=== PATIENT | male | born 1965 | race Caucasian/White ===

== ENCOUNTER 2020-09-27 08:38 | Outpatient (REF) | payer BC, SELFPAY | END 2020-09-27 08:39 | disposition home or self-care (01) | LOC: HO.WFDLDS 08:38 | PROVIDERS: PCP Internal Medicine; Visit Provider Internal Medicine | DX: Z20.822 Contact with and (suspected) exposure to COVID-19 (principal) | CPT/HCPCS: 36415; C9803; U0003; U0005 ==

== ENCOUNTER 2022-10-08 11:29 | Outpatient (REF) | payer BC, SELFPAY ==
--- NOTE | ~2022-10-08 | XR_ITS ---
EXAMINATION: XR KNEE, LEFT CLINICAL INFORMATION: Left knee sprain. COMPARISON: None available. TECHNIQUE: Four views of the left knee. FINDINGS: Moderate medial compartment joint space narrowing. Tricompartmental marginal osteophytes. No osseous erosion. No fracture or dislocation. No concerning lytic or blastic osseous lesion. Trace joint effusion. Unfused osteophyte versus loose body along the posterior margin of the tibial plateau measuring up to 1.1 cm. XR/XR knee LT 4V IMPRESSION: 1. Tricompartmental osteoarthritis, most prominent within the medial compartment. Trace joint effusion. 2. No acute fracture or dislocation.
== END 2022-10-08 11:30 | disposition home or self-care (01) ==
LOC: HO.HMGCX 11:29
PROVIDERS: Visit Provider Internal Medicine
DX: S83.92XA Sprain of unspecified site of left knee, initial encounter (principal); X58.XXXA Exposure to other specified factors, initial encounter; Y93.9 Activity, unspecified; Y92.9 Unspecified place or not applicable; Y99.9 Unspecified external cause status
CPT/HCPCS: 73564

== ENCOUNTER 2023-06-05 10:00 | Outpatient (AMB) | payer BC, SELFPAY ==
[2023-06-05 10:05] VITALS: BP 152/92; PULSE 83; RESP 13; O2SAT 98; BMI 47.5
--- NOTE | 2023-06-05 10:05 | MHC.PC.OV ---
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 Patient reports he requested his records from [facility]. 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 Pelaez @ [place] Last office visit/CPE: Acute issue(s): Establishing Care PMHx: Hypertriglyceridemia, SurgHx: R Hip replacement, Bariatrics 01/2020 [place] bypass, Dr. Trevizo, Tonsils, Colonoscopy normal, right before covid FHx: Dad: Rectal CA. 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 Nonsmoker. Chews tobacco. [facility] Surgical History (Updated 06/05/23 @ 10:21 by Dmitry An) History of bariatric surgery History of hip replacement Household Members: Spouse and Children Housing: House Alcohol intake: current Alcohol intake frequency: holidays/special occasions only Patient Tobacco Use Status: Current everyday Tobacco user Tobacco use type: Smokeless Tobacco (chew) e-Cigarette/Vaping Use: Never Used service: No Current occupational status: employed Current occupation: [employer] Current occupational exposures/hazards: No Sexual orientation: Unable to collect Gender identity: Unable to collect Cognitive needs: No Hearing needs: No Vision needs: No Questionnaire PHQ-9 Over the last 2 weeks, how often have you been bothered by any of the following problems? 1. Little interest or pleasure in doing things: not at all 2. Feeling down, depressed, or hopeless: not at all 3. Trouble falling or staying asleep, or sleeping too much: more than half the days 4. Feeling tired or having little energy: not at all 5. Poor appetite or overeating: not at all 6. Feeling bad about yourself - or that you are a failure or have let yourself or your family down: not at all 7. Trouble concentrating on things, such as reading the newspaper or watching television: not at all 8. Moving or speaking so slowly that other people could have noticed. Or the opposite - being so fidgety or restless that you have been moving around a lot more than usual: not at all 9. Thoughts that you would be better off or of hurting yourself in some way: not at all Total score: 2 Source: Developed by Drs. Jose Cruz Álvarez, Andree Martin, Alex Card and colleagues, with an educational laly from [employer]. Thrive Questionnaire Date Thrive assessed: 06/05/23 I am a: Patient What is your living situation today?: I have a steady place to live Within the past 12 months, did the food you bought not last and you didn't have the money to get more?: Never true Within the past 12 months, did you worry whether your food would run out before you got money to buy more?: Never true Do you have trouble paying for medicines?: No Do you have trouble getting transportation to medical appointments?: No Do you have trouble paying your heating and electricity bill?: No Do you have trouble taking care of your child, family member or friend?: No Do you have trouble with day-to-day activities such as bathing, preparing meals, shopping, managing finances, etc.?: No Are you currently unemployed and looking for a job?: No Are you interested in more education?: No JEFFRY-7 AMB Questionnaire JEFFRY-7 Date JEFFRY - 7 assessed: 06/05/23 Feeling nervous, anxious, or on edge: 0 = Not at all Not being able to stop or control worryin = Not at all Worrying too much about different things: 0 = Not at all Trouble relaxin = Not at all Being so restless that it is hard to sit still: 0 = Not at all Becoming easily annoyed or irritable: 0 = Not at all Feeling afraid as if something awful might happen: 0 = Not at all Total JEFFRY-7 score (0-4 normal; 5-9 mild; 10-14 moderate; 15-21 severe): 0 Source: Developed by Drs. Jose Cruz Álvarez, Andree Martin, Alex Card and colleagues, with an educational laly from [employer]. Review of Systems Const Denies chills, Denies fatigue, Denies fever(s), Denies headache(s) and Denies weakness Eyes Denies change in vision ENT Denies dizziness and Denies headache(s) Card Denies chest pain, Denies lightheadedness, Denies dyspnea and Denies other (Palpitations) Resp Denies cough, Denies dyspnea, Denies wheezing and Denies other ( shortness of breath) GI Denies abdominal pain, Denies melena, Denies hematochezia, Denies change in bowel habits, Denies dyspepsia and Denies nausea Denies hematuria and Denies dysuria Musc Denies numbness and Denies tingling Skin/Breast Denies rash, Denies unusual bruising and Denies wounds Neuro Denies dizziness, Denies headache(s), Denies numbness, Denies Sensory deficit (Neuro), Denies tingling, Denies paresthesias and Denies weakness Psych Denies anxiety and Denies depression Endo Denies fatigue Mike/Lymph Denies easy bleeding and Denies easy bruising Aller/Immun Denies wheezing Physical exam (Primary Care) Vital Signs: Last Vital Signs Pulse 83 06/05/23 10:05 Resp 13 06/05/23 10:05 BP 152/92 H 06/05/23 10:05 Pulse Ox 98 06/05/23 10:05 Oxygen Delivery Method Room Air 06/05/23 10:05 BMI result Body Mass Index 47.5 Tobacco/Smoking Status: Tobacco use Status Tobacco use date assessed 06/05/23 06/05/23 10:12 Patient Tobacco Use Status Current everyday Tobacco 06/05/23 10:14 Tobacco use type Smokeless Tobacco (chew) 06/05/23 10:12 e-Cigarette/Vaping Use Never Used 06/05/23 10:12 PHQ-9: PHQ-9 Score PHQ-9: Total score 2 06/05/23 10:20 Thrive Assessment: Date of Thrive Assessment Date Thrive assessed 06/05/23 06/05/23 10:22 Const General: no acute distress and well developed Nutritional Appearance: obese morbidly obese Orientation/consciousness: patient oriented x3 HENKS Head: Yes normocephalic and Yes atraumatic Ears: hearing grossly normal bilaterally and TM's normal bilaterally General nose exam: Normal external nose present and Normal nares present Mouth: Normal oral and palatal mucosa present and moist mucous membranes Teeth and gingiva: dentition normal Throat: Yes posterior oropharynx normal Eyes General: appearance normal, both eyes and all related structures Pupils: Equal, round and reactive pupils present EOM: EOMs intact bilaterally Neck Neck: Yes normal visual inspection, Yes no lymphadenopathy and Yes trachea midline Thyroid: Thyroid normal Carotids: no bruits Lymphatic: no lymphadenopathy noted Chest Chest palpation & inspection: normal inspection of the chest Resp Effort & Inspection: normal respiratory effort Auscultation: clear to auscultation bilaterally Cardio Rate: regular rate Rhythm: regular rhythm Heart sounds: S1 normal heart sound present, S2 normal heart sound present, no gallops, no murmurs and no rubs Bruits: no abdominal aortic bruits and no carotid bruits GI Palpation (GI): No Abdominal aortic bruit present, Soft to palpation, nontender, No hepatosplenomegaly present and No Rebound tenderness present Auscultation: normal bowel sounds General: Yes no CVA tenderness Back/Spine/Pelvis Back: no CVA tenderness Cervical Spine: cervical ROM normal and No Cervical spine tenderness Thoracic/Lumbar Spine: thoraco-lumbar ROM normal, No pain with thoraco-lumbar ROM, No thoracic spinal tenderness and No lumbar spinal tenderness Skin Lesions: no lesions Rashes: no rashes Trauma: no lacerations or abrasions Wounds: no wounds Nails: normal Neuro General: patient oriented x3 and gait normal Cranial nerves: Yes Equal, round and reactive pupils present Cognition (Neuro): normal cognition Gait exam (Neuro): Normal gait present Motor exam (neuro): 5/5 motor strength present throughout Sensory Exam: No Sensory deficit (Neuro) Deep tendon reflexes (DTR's): Right patellar reflex intensity grade: 2+ and Left patellar reflex intensity grade: 2+ Extrem General: Yes normal to inspection and No edema Psych Appearance: grossly normal Affect: normal affect Attitude: cooperative Thought process: Normal thought process present Assessment and Plan Assessment & Plan (1) Adult general medical exam: Code(s): Z00.00 - Encounter for general adult medical examination without abnormal findings Plan: 57-year-old?male?presents?for?complete?physical?exam Encouraged?healthy?diet?with?active?lifestyle?and?plenty?of?exercise (2) Morbid obesity: Code(s): E66.01 - Morbid (severe) obesity due to excess calories Plan: S/p?gastric?sleeve?procedure Still?followed?by?weight?management/bariatrics They?are?considering?adding?Mounjaro Follow-up?with?weight?management?as?recommended (3) Hypertriglyceridemia: Code(s): E78.1 - Pure hyperglyceridemia Plan: Check?lipid (4) Screening for colon cancer: Code(s): Z12.11 - Encounter for screening for malignant neoplasm of colon Plan: Last?colonoscopy?around?2019?and?was?told?to?follow-up?in?5?years. Up-to-date Will?request?report (5) Difficulty sleeping: Code(s): G47.9 - Sleep disorder, unspecified Plan: Difficulty?sleeping?and?patient?does?not?get?home?until?late.??Likely?missing?window?for?sleep. Also?notes?that?he?snores?and?patient?is?morbidly?obese.??Likely?sleep?apnea?as?well (6) Sleep apnea: Code(s): G47.30 - Sleep apnea, unspecified Orders: Orders Complete Blood Count Auto Diff Today Z00.00 - Encounter for general adult medical examination without abnormal findings Lipid Panel Today Z00.00 - Encounter for general adult medical examination without abnormal findings Microalbumin, Random (w Creat) Today I10 - Essential (primary) hypertension Prostate Specific Antigen Scr Today Z12.5 - Encounter for screening for malignant neoplasm of prostate TSH reflex Free T4 Today Z00.00 - Encounter for general adult medical examination without abnormal findings UA and rflx microscopic Today Z00.00 - Encounter for general adult medical examination without abnormal findings Vitamin B12 and Folate Today E53.8 - Deficiency of other specified B group vitamins Comprehensive [place]. Panel Fast Today Z00.00 - Encounter for general adult medical examination without abnormal findings Referrals Sleep Medicine Referral G47.30 - Sleep apnea, unspecified Coding Level of Care Code New Pt Level 3 (65223) New Pt Prev Care 40-64y(77815) Diagnoses Adult general medical exam Z00.00 Morbid obesity E66.01 Hypertriglyceridemia E78.1 Screening for colon cancer Z12.11 Difficulty sleeping G47.9 Sleep apnea G47.30
== END 2023-06-05 10:48 | disposition home or self-care (01) ==
PROVIDERS: PCP Family Medicine; Visit Provider Family Medicine
DX: Z00.00 Encounter for general adult medical examination without abnormal findings (principal); E66.01 Morbid (severe) obesity due to excess calories; Z68.42 Body mass index [BMI] 45.0-49.9, adult; E78.1 Pure hyperglyceridemia; Z12.11 Encounter for screening for malignant neoplasm of colon; G47.9 Sleep disorder, unspecified; G47.30 Sleep apnea, unspecified
CPT/HCPCS: 99386

== ENCOUNTER 2023-06-21 08:17 | Outpatient (AMB) | payer BC, SELFPAY ==
[2023-06-21 08:38] VITALS: BP 124/72; PULSE 69; RESP 14; O2SAT 95; BMI 47.5
--- NOTE | 2023-06-21 08:38 | MHC.PC.OV ---
Vital Signs 06/21/23 08:38 Height 6 ft 4.75 in Weight 398 lb BMI 47.5 BP 124/72 Blood Pressure Location Lt brachial Position Sitting Respiration 14 Pulse 69 Pulse Source Pulse Oximeter Pulse Oximetry (%) 95 Oxygen Delivery Method Room Air Intake Visit Reasons: Pain upon urination, see comments Intake Note: Patient is here to follow up with urinary concerns. Patient reports he used the bathroom and it felt like an object shot out and noticed a small amount of blood. Then the pain in his back went away and when he used the bathroom it burned a little but not like before passing the object. . Patient would like to mention he had blood in his belly button and would like to discuss gout left big toe. 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 Patient reports he used the bathroom and it felt like an object shot out and noticed a small amount of blood. Then the pain in his back went away and when he used the bathroom it burned a little but not like before passing the object. Pt notes dysuria cleared up yesterday and denies any dysuria. Pt also notes he had found some blood in his belly button. [facility] Medical History (Updated 06/21/23 @ 09:19 by Dmitry An) No pertinent past medical history Surgical History (Updated 06/05/23 @ 10:21 by Dmitry An) History of bariatric surgery History of hip replacement Social History (Updated 06/05/23 @ 10:14 by Rashmi Butler [facility]) Household Members: Spouse and Children Housing: House Alcohol intake: current Alcohol intake frequency: holidays/special occasions only Patient Tobacco Use Status: Current everyday Tobacco user Tobacco use type: Smokeless Tobacco (chew) e-Cigarette/Vaping Use: Never Used service: No Current occupational status: employed Current occupation: [employer] Current occupational exposures/hazards: No Sexual orientation: Unable to collect Gender identity: Unable to collect Cognitive needs: No Hearing needs: No Vision needs: No Questionnaire PHQ-9 Over the last 2 weeks, how often have you been bothered by any of the following problems? 1. Little interest or pleasure in doing things: not at all 2. Feeling down, depressed, or hopeless: not at all 3. Trouble falling or staying asleep, or sleeping too much: not at all 4. Feeling tired or having little energy: several days 5. Poor appetite or overeating: several days 6. Feeling bad about yourself - or that you are a failure or have let yourself or your family down: not at all 7. Trouble concentrating on things, such as reading the newspaper or watching television: not at all 8. Moving or speaking so slowly that other people could have noticed. Or the opposite - being so fidgety or restless that you have been moving around a lot more than usual: not at all 9. Thoughts that you would be better off or of hurting yourself in some way: not at all Total score: 2 Depression Screening Interpretation: Negative Depression Screening Done: Yes 34621 - PHQ-9 Billing: Yes Source: Developed by Drs. Jose Cruz Álvarez, Andree Martin, Alex Card and colleagues, with an educational laly from [employer]. Thrive Questionnaire Date Thrive assessed: 06/05/23 AUDIT C Alcohol Use Questionnaire (AUDIT-C) 1. How often do you have a drink containing alcohol?: Monthly or less 2. How many drinks containing alcohol do you have on a typical day when you are drinking?: 1 or 2 3. How often do you have six or more drinks on one occasion?: Never Total Score: 1 Score Reviewed/Action Taken: No (Neg. No Action taken) JEFFRY-7 AMB Questionnaire JEFFRY-7 Date JEFFRY - 7 assessed: 06/05/23 Source: Developed by Drs. Jose Cruz Álvarez, Alex Gonzalez and colleagues, with an educational laly from [employer]. Physical exam (Primary Care) Vital Signs: Last Vital Signs Pulse 69 06/21/23 08:38 Resp 14 06/21/23 08:38 BP 124/72 06/21/23 08:38 Pulse Ox 95 06/21/23 08:38 Oxygen Delivery Method Room Air 06/21/23 08:38 BMI result Body Mass Index 47.5 Tobacco/Smoking Status: Tobacco use Status Tobacco use date assessed 06/05/23 06/21/23 08:44 Patient Tobacco Use Status Current everyday Tobacco 06/21/23 08:44 Tobacco use type Smokeless Tobacco (chew) 06/21/23 08:44 e-Cigarette/Vaping Use Never Used 06/21/23 08:44 PHQ-9: PHQ-9 Score PHQ-9: Total score 2 06/21/23 09:01 Depression Screening Interpretation: Negative Thrive Assessment: Date of Thrive Assessment Date Thrive assessed 06/05/23 06/21/23 08:44 Assessment and Plan Assessment & Plan (1) Dysuria: Code(s): R30.0 - Dysuria Plan: Temporary?dysuria/burning?after?passing?solid?object?while?urinating. Likely?passed?a?stone Checking?urinalysis No?longer?has?any?pain/burning,?blood?or?discharge. Hydrate?well. If?patient?has?any?further?symptoms?or?episodes,?will?refer?to?Urology (2) Gout: Code(s): M10.9 - Gout, unspecified Plan: Left?great?toe?pain?and?swelling Checking?uric?acid Will?give?him?a?short?course?of?prednisone Advised?ice?and?elevation (3) Fungal infection of skin: Code(s): B36.9 - Superficial mycosis, unspecified Plan: Fungal?infection?in?umbilicus Can?use?topical?antifungal?cream Clean?and?dry?area?regularly Orders: Orders Uric Acid Today M79.676 - Pain in unspecified toe(s) Medications: New clotrimazole 1% 1 appl topical BID 30 grams 0RF 2 weeks prednisone 40 mg (2 x 20 mg) PO DAILY 8 tabs 0RF 4 days Coding Level of Care Code Est Pt Level 4 (24403) Diagnoses Dysuria R30.0 Gout M10.9 Fungal infection of skin B36.9
== END 2023-06-21 09:30 | disposition home or self-care (01) ==
PROVIDERS: PCP Family Medicine; Visit Provider Family Medicine
DX: R30.0 Dysuria (principal); M10.9 Gout, unspecified; B36.9 Superficial mycosis, unspecified
CPT/HCPCS: 99214

== ENCOUNTER 2023-06-21 08:19 | Outpatient (REF) | payer BC, SELFPAY ==
[2023-06-21 12:15] LABS: Appearance Urine Clear; Color Urine Yellow; Glucose Urine UA Negative (Negative); Leukocyte Esterase Urine Small (1+) (Negative); Nitrite Urine Negative (Negative); PH 5.5 (5.0-9.0); Specific Gravity - Urine 1.025 (1.005-1.025); UMIC TRIGGER UA YES; Urine Blood Negative (Negative); Urine Ketones Negative (Negative); Urine Protein Negative (Neg-Trace)
[2023-06-21 12:16] LABS: MANUAL DIFF FLAG NO
[2023-06-21 12:21] LABS: Bacteria Urine None Seen (None Seen); Hyaline Casts Urine 0-2 /LPF (0-2); RBC Urine 0-2 /HPF (0-2); Squamous Epithelial Cell Urine 0-2 /HPF (0-2)
[2023-06-21 12:32] LABS: Basophils Absolute Auto 0.1 X10*3/uL (0.0-0.2); Basophils Percent Auto 0.8 % (0-2); Eosinophils Absolute Auto 0.1 X10*3/uL (0.0-0.4); Eosinophils Percent Auto 1.8 % (0-4); Hematocrit 44.1 % (42.0-52.0); Imm Gran Abs Auto 0.02 X10*3/uL (0.00-0.03); Imm Gran Pct Auto 0.3 % (0.0-0.4); Lymphocytes Absolute Auto 1.6 X10*3/uL (1.2-4.9); Lymphocytes Percent Auto 26.7 % (20-40); Mean Corpuscular Hemoglobin 33.3 pg (27.0-33.0); Mean Corpuscular Volume 97.8 fL (80.0-98.0); Mean Platelet Volume 10.2 fL (9.4-12.4); Monocytes Absolute Auto 0.3 X10*3/uL (0.1-1.2); Monocytes Percent Auto 5.3 % (2-11); Neutrophils Absolute Auto 3.9 x10*3/uL (2.0-8.3); Neutrophils Percent Auto 65.1 % (45-73); Platelet Count 230 X10*3/uL (160-400); Red Blood Count 4.51 X10*6/uL (4.60-5.80); Red Cell Distribution Width 12.9 % (11.0-16.0)
[2023-06-21 12:54] LABS: Creatinine Urine 210.37 mg/dL; Microalbum/Creatinine Ratio Ur 6.1 ug/mg cr (<30)
[2023-06-21 13:27] LABS: Folate 8.8 ng/mL (> or = 4.0); Prostate Specific Antigen Scr 0.54 ng/mL (<0.05-4.0); Vitamin B12 699 pg/mL (200-900)
[2023-06-21 13:30] LABS: Alanine Aminotransferase 20 U/L (0-40); Albumin Level 3.9 g/dL (3.5-5.0); Alkaline Phosphatase 64 U/L (39-117); Anion Gap 12 (12-20); Aspartate Amino Transferase 22 U/L (5-37); Blood Urea Nitrogen 13 mg/dL (9-16); Calcium 8.7 mg/dL (8.4-10.2); Carbon Dioxide 28 mmol/L (22-29); Chloride 109 mmol/L (96-108); Cholesterol 153 mg/dL (<200); Estimated Glomerular Filt Rate > 60; Glucose Fasting 77 mg/dL (60-99); HDL Cholesterol 46 mg/dL (>40); LDL Cholesterol Calculated 88 mg/dL (<100); Potassium 4.2 mmol/L (3.3-5.1); Sodium 145 mmol/L (135-145); Total Protein 7.1 g/dL (6.5-8.0); Triglycerides 98 mg/dL (<150); Uric Acid 6.7 mg/dL (3.4-7.0)
[2023-06-21 13:42] LABS: TSH reflex Free T4 1.17 uIU/mL (0.32-4.0)
== END 2023-06-21 08:20 | disposition home or self-care (01) ==
LOC: HO.WFDLDS 08:19
PROVIDERS: Visit Provider Family Medicine
DX: Z00.00 Encounter for general adult medical examination without abnormal findings (principal); Z12.5 Encounter for screening for malignant neoplasm of prostate; I10 Essential (primary) hypertension; E53.8 Deficiency of other specified B group vitamins
CPT/HCPCS: 36415; 80053; 80061; 81001; 82043; 82570; 82607; 82746; 84153; 84443; 84550; 85025

== ENCOUNTER 2023-07-05 14:18 | Outpatient (AMB) | payer BC, SELFPAY ==
--- NOTE | 2023-07-05 14:14 | MHC.PC.OV ---
Intake Visit Reasons: f/u CPE-labs Intake Note: Patient is following up on his labs. 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 Labs were drawn 06/21/23. Reviewed labs with pt. Triglycerides 98. TC 153. LDL 88. HDL 46. Uric acid 6.7. PFSH Medical History (Updated 06/21/23 @ 09:19 by Dmitry An) No pertinent past medical history Surgical History (Updated 06/05/23 @ 10:21 by Dmitry An) History of bariatric surgery History of hip replacement Social History (Updated 06/05/23 @ 10:14 by Rashmi Butler [facility]) Household Members: Spouse and Children Housing: House Alcohol intake: current Alcohol intake frequency: holidays/special occasions only Patient Tobacco Use Status: Current everyday Tobacco user Tobacco use type: Smokeless Tobacco (chew) e-Cigarette/Vaping Use: Never Used service: No Current occupational status: employed Current occupation: [employer] Current occupational exposures/hazards: No Sexual orientation: Unable to collect Gender identity: Unable to collect Cognitive needs: No Hearing needs: No Vision needs: No Questionnaire Thrive Questionnaire Date Thrive assessed: 06/05/23 JEFFRY-7 AMB Questionnaire JEFFRY-7 Date JEFFRY - 7 assessed: 06/05/23 Source: Developed by Drs. Jose Cruz Álvarez, Andree Martin, Alex Card and colleagues, with an educational laly from [employer]. Physical exam (Primary Care) Tobacco/Smoking Status: Tobacco use Status Tobacco use date assessed 06/05/23 07/05/23 14:16 Patient Tobacco Use Status Current everyday Tobacco 07/05/23 14:16 Tobacco use type Smokeless Tobacco (chew) 07/05/23 14:16 e-Cigarette/Vaping Use Never Used 07/05/23 14:16 Thrive Assessment: Date of Thrive Assessment Date Thrive assessed 06/05/23 07/05/23 14:16 Telehealth Telehealth Location of provider rendering services: practice address Location of patient: address on file Patient Identification confirmed using: Name, : Yes Telehealth method: voice only Patient verbally consented to treatment: Yes Patient verbally consented to billing insurance company: Yes Patient informed of any privacy concerns related to visit: Yes Minutes spent on Phone/Video with Pt.: 5 Assessment and Plan Assessment & Plan (1) Gout: Code(s): M10.9 - Gout, unspecified Plan: Uric?acid?6.7 - discussed?that?my?goal?for?him?is?6.0?or?less?but?he?has?no?symptoms We?can?continue?to?watch?this; he?will?let?me?know?if?he?has?any?flare-ups?and?he?will?avoid?trigger?foods Will?recheck?with?his?next?lab?draw (2) Dysuria: Code(s): R30.0 - Dysuria Plan: This?has?resolved Orders: Orders Complete Blood Count Auto Diff 9 Months Z00.00 - Encounter for general adult medical examination without abnormal findings Prostate Specific Antigen Scr 9 Months Z12.5 - Encounter for screening for malignant neoplasm of prostate TSH reflex Free T4 9 Months Z00.00 - Encounter for general adult medical examination without abnormal findings Comprehensive [place]. Panel Fast 9 Months Z00.00 - Encounter for general adult medical examination without abnormal findings Lipid Panel 9 Months Z00.00 - Encounter for general adult medical examination without abnormal findings Microalbumin, Random (w Creat) 9 Months I10 - Essential (primary) hypertension UA and rflx microscopic 9 Months Z00.00 - Encounter for general adult medical examination without abnormal findings Uric Acid 9 Months M10.9 - Gout, unspecified Coding Level of Care Code Tele Est Pt Level 2 (39777) Diagnoses Gout M10.9 Dysuria R30.0
== END 2023-07-05 16:59 | disposition home or self-care (01) ==
PROVIDERS: PCP Family Medicine; Visit Provider Family Medicine
DX: M10.9 Gout, unspecified (principal); R30.0 Dysuria
CPT/HCPCS: 99441

== ENCOUNTER 2023-08-19 13:22 | Outpatient (AMB) | payer BC, SELFPAY ==
--- NOTE | 2023-08-19 13:30 | MHC.OFFVIS ---
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 Pt reports loud snoring, witnessed apnea spells. He had a hip replacement surgery done and witnessed frequent apnea spells and recommended to do sleep study to r/o sleep apnea. He also had gastric bypass surgery done in 2019. Sleep questionnaire: Have you ever been diagnosed with a sleep disorder? No. Have you ever had a sleep study in the past? No. Have you ever been treated for a sleep disorder? No. Do you take medications for a sleep disorder? No. Do you snore? Yes. Do you wake up gasping at night? No. Do you have episodes of apneas? Yes. If yes, are they witnessed? Yes. Do you have episodes of nocturnal chest pain or dyspnea? No. Do you have difficulty initiating sleep? No. Do you have difficulty maintaining sleep? Yes. Do you wake up tired? Yes. Do you have headaches upon awakening? No. Do you wake up with dry mouth or throat? Yes. Do you have GERD? No. Do you have nocturia? No. Do you have nocturnal leg cramps? Yes. Do you have symptoms of restless legs? No. Do you act out your dreams? No. Sleep hygiene questionnaire: What is your usual sleep routine? Usual bedtime is at 11:30-12:30 am; Usual wake up time is at 5:30 am. Do you take naps? Yes, sometimes. Is your sleep environment cool, dark, and quiet? Yes. Do you exercise? Yes. Do you take caffeine or other stimulants? Yes, coffee in the morning. Do you use electronics in bed? Yes, sometimes. What is your work schedule? 6:30 am-6:30 pm. Hypersomnolence questionnaire: Do you have daytime tiredness or fatigue? Yes. Do you easily fall asleep when inactive? Yes. Have you ever had episodes of sudden weakness? No. Have you ever had episodes of sudden weakness associated with strong emotions? No. [facility] Medical History (Updated 08/19/23 @ 14:17 by Kalani Lin CNP) No pertinent past medical history Surgical History History of bariatric surgery History of hip replacement Social History Household Members: Spouse and Children Housing: House Alcohol intake: current Alcohol intake frequency: holidays/special occasions only Patient Tobacco Use Status: Current everyday Tobacco user Tobacco use type: Smokeless Tobacco (chew) e-Cigarette/Vaping Use: Never Used service: No Current occupational status: employed Current occupation: [employer] Current occupational exposures/hazards: No Sexual orientation: Unable to collect Gender identity: Unable to collect Cognitive needs: No Hearing needs: No Vision needs: No Review of Systems Const All systems reviewed & are unremarkable except as noted in HPI and below Physical Exam Vital Signs: Last Vital Signs Pulse 75 08/19/23 13:36 BP 124/70 08/19/23 13:36 Pulse Ox 96 08/19/23 13:36 Oxygen Delivery Method Room Air 08/19/23 13:36 BMI result Body Mass Index 49.9 Const General: cooperative Nutritional Appearance: obese Orientation/consciousness: patient oriented x3 Neck Neck: Yes full ROM and Yes supple Resp Effort & Inspection: normal respiratory effort and able to speak in complete sentences Neuro General: patient oriented x3, gait normal and moves all extremities Cranial nerves: Yes CN's II-XII intact bilaterally Cognition (Neuro): normal cognition Gait exam (Neuro): Normal gait present Motor exam (neuro): 5/5 motor strength present throughout Psych Appearance: grossly normal Mental Status: mental status grossly normal Speech and movement: Normal speech and movement present Affect: normal affect Attitude: cooperative Assessment & Plan Assessment & Plan (1) Sleep apnea: Code(s): G47.30 - Sleep apnea, unspecified (2) Difficulty sleeping: Code(s): G47.9 - Sleep disorder, unspecified (3) Morbid obesity: Comment: BMI over 49 Code(s): E66.01 - Morbid (severe) obesity due to excess calories Plan Pt is advised to undergo in lab sleep study to assess for sleep apnea. Will f/u with pt after study to discuss results and appropriate treatment options. Sleep hygiene education provided. Wt reduction advised. Pt to call with any worsening concerns or questions. Orders: Orders RT PSG in-lab sleep study 08/19/23 E66.01 - Morbid (severe) obesity due to excess calories, G47.30 - Sleep apnea, unspecified Coding Level of Care Code New Pt Level 3 (48287) Diagnoses Sleep apnea G47.30 Difficulty sleeping G47.9 Morbid obesity E66.01
[2023-08-19 13:36] VITALS: BP 124/70; PULSE 75; O2SAT 96; BMI 49.9
== END 2023-08-19 14:21 | disposition home or self-care (01) ==
PROVIDERS: PCP Family Medicine; Visit Provider Nurse Practitioner Family
DX: G47.30 Sleep apnea, unspecified (principal); G47.9 Sleep disorder, unspecified; E66.01 Morbid (severe) obesity due to excess calories
CPT/HCPCS: 99203

== ENCOUNTER → 2023-08-19 13:22 | Outpatient (BNVA) | payer BC, SELFPAY | PROVIDERS: PCP Family Medicine; Visit Provider Nurse Practitioner Family ==

== ENCOUNTER → 2023-11-26 14:40 | Outpatient (REF) | payer BC, SELFPAY | LOC: HO.SL 14:40 | PROVIDERS: PCP Family Medicine; Visit Provider Nurse Practitioner Family | DX: G47.33 Obstructive sleep apnea (adult) (pediatric) (principal); E66.01 Morbid (severe) obesity due to excess calories | CPT/HCPCS: 95806 ==

== ENCOUNTER → 2023-11-26 14:56 | Outpatient (BNV) | payer BC, SELFPAY | PROVIDERS: PCP Family Medicine; Visit Provider Psychiatry & Neurology Neurology | DX: G47.33 Obstructive sleep apnea (adult) (pediatric) (principal) | CPT/HCPCS: 95806 ==

== ENCOUNTER 2024-05-14 13:32 | Outpatient (AMB) | payer OTHER, SELFPAY ==
--- NOTE | 2024-05-14 13:35 | A.OFFVIS_ITS ---
Vital Signs 05/14/24 13:36 Height 6 ft 5 in Weight 387 lb BMI 45.9 Intake Visit Reasons: 4m f/u for Sleep Apnea Intake Note: patient presents for follow up sleep apnea Allergies No Known Allergies Allergy (Verified 05/14/24 13:40) Medication List - Last Reconciled 05/14/24 by SANDRA Rao No Known Home Meds HPI Comments Details: 58-yr-old male presents for follow-up visit of sleep apnea. Pt was previously seen by our former colleague Kalani SAMUEL. Since the last visit, pt underwent HST, as insurance declined in-lab PSG study. Since the last visit, pt underwent HST which revealed AHI /hr w/ O2 mitch 76% w/ SpO2 < 90% x's 64.6 min, SpO2 < 88% x's 8.9 min, and average SpO2 92%. Pt states he did not sleep well during the sleep study. Normally sleeps on his stomach or left side d/t old right shoulder injury, but during study he slept on his left side predominantly. 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 Pt denies SOB at rest, congestion, chest pain, asthma, COPD. COUNT INCLUDES [facility] Medical History (Updated 05/14/24 @ 14:34 by SANDRA Rao) No pertinent past medical history Surgical History History of bariatric surgery History of hip replacement Social History Household Members: Spouse and Children Housing: House Alcohol intake: current Alcohol intake frequency: holidays/special occasions only Patient Tobacco Use Status: Current everyday Tobacco user Tobacco use type: Smokeless Tobacco (chew) e-Cigarette/Vaping Use: Never Used service: No Current occupational status: employed Current occupation: [employer] Current occupational exposures/hazards: No Sexual orientation: Unable to collect Gender identity: Unable to collect Cognitive needs: No Hearing needs: No Vision needs: No Physical Exam Vital Signs: BMI result Body Mass Index 45.9 Const General: no acute distress Orientation/consciousness: patient oriented x3 Resp Effort & Inspection: normal respiratory effort and able to speak in complete sentences Neuro General: patient oriented x3 Psych Mental Status: mental status grossly normal Speech and movement: Clear speech present Attitude: cooperative Assessment & Plan Assessment & Plan (1) Obstructive sleep apnea: Comment: 11/26/23 HST- AHI 5.8/hr w/ O2 mitch 76%. Poor sleep during study may have resulted in study underestimating full extent of sleep apnea. Code(s): G47.33 - Obstructive sleep apnea (adult) (pediatric) Category: Medical (2) Nocturnal hypoxemia: Code(s): G47.34 - Idiopathic sleep related nonobstructive alveolar hypoventilation Category: Medical Plan Reviewed results of sleep study report, results c/w sleep apnea. Discussed complications a/w untreated YASHIRA, including but not limited to CV, metabolic, and cognitive dysfunction. Thus, pt advised to start PAP tx.. Continue APAP 5-20 cmH2O nightly > 4 hours. Once pt has adjusted to APAP use, nocturnal pulse oximetry reading x's 1 while on room air APAP [id number]. Clean CPAP machine and supplies routinely. Change CPAP supplies routinely. Pt to contact us or respiratory company with any questions or concerns. Pt to follow-up in 4 months or sooner prn. Orders: Orders Overnight Pulse Oximetry Today G47.33 - Obstructive sleep apnea (adult) (pediatric), G47.34 - Idiopathic sleep related nonobstructive alveolar hypoventilation Medications: Discontinued clotrimazole 1% Discontinued Reason: Patient Completed Course 1 appl topical BID 2 weeks 30 grams 0RF prednisone Discontinued Reason: Patient Completed Course 40 mg (2 x 20 mg) PO DAILY 4 days 8 tabs 0RF Coding Level of Care Code Est Pt Level 3 (67464) Diagnoses Obstructive sleep apnea G47.33 Nocturnal hypoxemia G47.34
[2024-05-14 13:36] VITALS: BMI 45.9
== END 2024-05-14 14:16 | disposition home or self-care (01) ==
LOC: HO.HSMS 13:33
PROVIDERS: PCP Family Medicine; Visit Provider Nurse Practitioner Family
DX: G47.33 Obstructive sleep apnea (adult) (pediatric) (principal); G47.34 Idiopathic sleep related nonobstructive alveolar hypoventilation
CPT/HCPCS: 99213

== ENCOUNTER → 2024-05-14 13:32 | Outpatient (BNVA) | payer OTHER, SELFPAY | PROVIDERS: PCP Family Medicine; Visit Provider Nurse Practitioner Family ==

== ENCOUNTER → 2024-09-18 14:54 | Outpatient (AMB) | payer OTHER, SELFPAY ==
--- NOTE | 2024-09-18 15:27 | MHC.OFFVIS ---
Vital Signs 09/18/24 15:28 Height 6 ft 5 in Weight 387 lb BMI 45.9 BP 130/82 Blood Pressure Location Rt brachial Position Sitting Pulse 70 Pulse Source Pulse Oximeter Pulse Oximetry (%) 95 Oxygen Delivery Method Room Air Intake Visit Reasons: follow up for sleep Intake Note: Patient presents for follow up sleep apnea. Compliance report on file 09/01/24. Accompanied by: Self / Same As Patient Allergies No Known Allergies Allergy (Verified 09/18/24 15:29) HPI Comments Details: 58-yr-old male presents for follow-up visit of sleep apnea. YASHIRA Compliance Report 06/2024- 08/2024 Total use >4 hours 72/90 days 80% Avg use 4 hours and 14min Press median 6-8cmH20 Leaks 0.6- 75.9 AHI is 1.8 He goes to bed at 10pm wakes up at 6am with 2 bathroom breaks. 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 He sleeps more comfortably with the CPAP. He is a side sleeper, and tosses and turns due to an old shoulder injury, prefers the L. side and uses pillows as needed. He denies morning headaches and bruxism. He does not c/o RLS. He denies SOB. His mood, memory and diet are good, he had a gastric sleeve surgery and declines weight management today. He does not smoke, chews tobacco daily and drinks alcohol only on social events. He walks daily with the football team at least a mile. He washes his mask, changes out his filters and requests supplies as needed. [facility] Medical History No pertinent past medical history Surgical History History of bariatric surgery History of hip replacement Social History Household Members: Spouse and Children Housing: House Alcohol intake: current Alcohol intake frequency: holidays/special occasions only Patient Tobacco Use Status: Current everyday Tobacco user Tobacco use type: Smokeless Tobacco (chew) e-Cigarette/Vaping Use: Never Used service: No Current occupational status: employed Current occupation: [employer] Current occupational exposures/hazards: No Sexual orientation: Unable to collect Gender identity: Unable to collect Cognitive needs: No Hearing needs: No Vision needs: No Physical Exam Vital Signs: Last Vital Signs Pulse 70 09/18/24 15:28 BP 130/82 09/18/24 15:28 Pulse Ox 95 09/18/24 15:28 Oxygen Delivery Method Room Air 09/18/24 15:28 BMI result Body Mass Index 45.9 Const General: no acute distress Orientation/consciousness: patient oriented x3 Resp Effort & Inspection: normal respiratory effort and able to speak in complete sentences Neuro General: patient oriented x3 Psych Mental Status: mental status grossly normal Speech and movement: Clear speech present Attitude: cooperative Results Reviewed Results Reviewed: YASHIRA Compliance 06/2024- 08/2024 Total use >4 hours 72/90 days 80% Avg use 4 hours and 14min Press median 6-8cmH20 Leaks 0.6- 75.9 AHI is 1.8 Assessment & Plan Assessment & Plan (1) Obstructive sleep apnea: Comment: 11/26/23 HST- AHI 5.8/hr w/ O2 mitch 76%. Poor sleep during study may have resulted in study underestimating full extent of sleep apnea. Code(s): G47.33 - Obstructive sleep apnea (adult) (pediatric) Category: Medical (2) Difficulty sleeping: Code(s): G47.9 - Sleep disorder, unspecified Category: Medical (3) Morbid obesity: Comment: BMI over 49 Code(s): E66.01 - Morbid (severe) obesity due to excess calories Category: Medical (4) Nocturnal hypoxemia: Code(s): G47.34 - Idiopathic sleep related nonobstructive alveolar hypoventilation Category: Medical (5) Morbid obesity due to excess calories: Code(s): E66.01 - Morbid (severe) obesity due to excess calories Category: Medical Plan Sleep apnea compliance is emphasized Sleep hygiene provided. Weight management for caloric intake vs expenditure - patient declined f/u in 6months Patient Instructions: Sleep Hygiene, Sleep in a dark cool room with temperatures below 68 degrees, no devices in bed, may read a book. Morbid Obesity daily walking and exercise will help with weight management. Tobacco use - if and when ready to quit counseling along with gum, patches are available. Coding Level of Care Code Est Pt Level 4 (64760) Diagnoses Obstructive sleep apnea G47.33 Difficulty sleeping G47.9 Morbid obesity E66.01 Nocturnal hypoxemia G47.34 Morbid obesity due to excess calories E66.01 Time Spent (min) 30
[2024-09-18 15:28] VITALS: BP 130/82; PULSE 70; O2SAT 95; BMI 45.9
--- OUTSIDE RECORDS SUMMARY | 2024-09-18 16:37 | XMS_ITS | Clinical Summary ---
[facility] Address [address] [place] [address] Care Team Providers Care Lap Regulator Name Role Phone Mannie Kendrick MD Primary Care Provider Surgical History Surgery Date Site/Laterality Comments COLONOSCOPY 2003 PROCEDURE: HISTORICAL COLONOSCOPY; COMMENT: FH of colon cancer; 2 benign polyps OTHER SURGICAL HISTORY 09/17/2017 PROCEDURE: [place] EXCISION H/P/P/U SIMPLE/INTERMEDIATE REPAIR; COMMENT: with 0 cm defect closure OTHER SURGICAL HISTORY PROCEDURE: SLEEVE, INTER LIMB COMP DEV; COMMENT: bariatric sleeve Medical History Medical History Date Comments Hypertriglyceridemia 02/11/2012 DX:Hypertri glyceridemia Family history of colon cancer 02/11/2012 D X:Family history of colon cancer Colon polyp 02/11/2012 DX:Colon polyp Exotropia of left eye 02/11/2012 DX:Exotrop ia of left eye Essential hypertension 04/03/2016 DX:Essent ial hypertension Hyperlipidemia 02/11/2012 DX:Hyperlipidemi a Osteoarthritis 01/07/2018 DX:Osteoarthriti s; COMMENT: Cervical spine, hip Morbid obesity with BMI of 5 0.0-59.9, adult (CMS/HCC) 01/06/2018 DX:Morbid obesity with BMI o f 50.0-59.9, adult ([facility]) Family History Medical History Relation Name Comments Other: Colorectal Cancer Father d at age 60 Cataracts Maternal Grandfather Glaucoma Maternal Grandmother Blindness Neg Hx Macular degeneration Neg Hx Strabismus Neg Hx Relation Name Status Comments Aunt Pat aunt - lung cancer Daughter Alive 2 healthy Father (Age 64) colorectal cancer; HTN Maternal Grandfather (Age early 70s) mesothelioma Maternal Grandmother (Age 95) CV A Mother Alive healthy Paternal Grandfather Stomach cancer Paternal Grandmother (Age 86) [place] - ? heart Sister Alive healthy Son Alive healthy Uncle Pat uncle - sto mach cancer Social History Tobacco Use Types Packs/Day Years Used Date Smoking Tobacco: Never Smokeless Tobacco: Former Alcohol Use Standard Drinks/Week Comments Yes 0 (1 standard drink = 0.6 oz pur e alcohol) Sex and Gender Information Value Date Recorded Sex Assigned at Not on file Legal Sex Male 1:46 PM EST Gender Identity Not on file Sexual Orientation Not on file Obstetrics History Last Filed Vital Signs Vital Sign Reading Time Taken Comments Blood Pressure 128/65 04/09/2023 8:49 AM EDT Pulse 66 04/09/2023 8:49 AM EDT Temperature - - Respiratory Rate - - Oxygen Saturation - - Inhaled Oxygen Concentration - - Weight 187 kg (412 lb 0.6 oz) 04/09/2023 8:49 AM EDT Height 194.3 cm (6' 4.5 ) 04/09/2023 8:49 AM EDT Body Mass Index 49.5 04/09/2023 8:49 AM EDT Plan of Treatment Health Maintenance Due Date Last Done Comments Hepatitis B Vaccines (1 of 3 - 19+ 3-dose series) 1985 Pneumococcal Vaccine: 50+ Years (1 of 1 - PCV) 2016 Zoster Vaccines (1 of 2) 2016 Cholesterol Screening (Lipid Panel) 06/23/2022 Colorectal Cancer Screening: Colonoscopy 06/23/2022 Depression Screening 06/23/2022 HIV Screening 06/23/2022 Hepatitis C Screening 06/23/2022 Social Influencers of Health Screening 06/23/2022 Hypertension/CHF/CAD Annual BMP Blood Test 06/27/2022 DTaP,Tdap,and Td Vaccines (2 - Td or Tdap) 09/16/2023 09/15/2013 COVID-19 Vaccine ( - 2023-2 5 season) 2024 Influenza Vaccine (#1) 2024 5, 07/23/2012 HIB Vaccines Aged Out No longer eligi ble based on patient's age to complete this topic HPV Vaccines Aged Out No longer eligi ble based on patient's age to complete this topic Hepatitis A Vaccines Aged Out No long er eligible based on patient's age to complete this topic IPV Vaccines Aged Out No longer eligi ble based on patient's age to complete this topic MMR Vaccines Aged Out No longer eligi ble based on patient's age to complete this topic Meningococcal ACWY Vaccine Aged Out N o longer eligible based on patient's age to complete this topic Meningococcal B Vacine Aged Out No lo nger eligible based on patient's age to complete this topic Pneumococcal Vaccine: Pediatrics (0 to 5 Years) and At-Risk Patients (6 to 64 Years) Aged Out No longer eligible b ased on patient's age to complete this topic RSV Immunization Patients Under 20 months Aged Out No longer eligible b ased on patient's age to complete this topic Varicella Vaccines Aged Out No longer eligible based on patient's age to complete this topic Care Teams Lap Regulator Relationship Specialty Start Date End Date Mannie Kendrick MD [address] [place] [address] Dr Quiana MA PCP - General 02/25/23
== END ==
PROVIDERS: PCP Family Medicine; Visit Provider Physician Assistant Medical
DX: G47.33 Obstructive sleep apnea (adult) (pediatric) (principal); G47.9 Sleep disorder, unspecified; E66.01 Morbid (severe) obesity due to excess calories; G47.34 Idiopathic sleep related nonobstructive alveolar hypoventilation
CPT/HCPCS: 99214

== ENCOUNTER → 2024-09-18 14:54 | Outpatient (BNVA) | payer OTHER, SELFPAY | PROVIDERS: PCP Family Medicine; Visit Provider Physician Assistant Medical ==

== ENCOUNTER 2024-09-25 08:11 | Outpatient (REF) | payer OTHER, SELFPAY ==
--- OUTSIDE RECORDS SUMMARY | 2024-09-25 08:18 | XMS_ITS | Clinical Summary ---
Author Organization [facility] Address [address] [place] [address] Care Team Providers Care Manager Product Support Name Role Phone Mannie Kendrick MD Primary Care Provider Surgical History Surgery Date Site/Laterality Comments COLONOSCOPY 2003 PROCEDURE: HISTORICAL COLONOSCOPY; COMMENT: FH of colon cancer; 2 benign polyps OTHER SURGICAL HISTORY 09/17/2017 PROCEDURE: [place] EXCISION H/P/P/U SIMPLE/INTERMEDIATE REPAIR; COMMENT: with 0 [...] obesity with BMI o f 50.0-59.9, adult ([facility]) Family History Medical History Relation Name [...] age to complete this topic Care Teams Manager Product Support Relationship Specialty Start Date End Date Mannie Kendrick MD [address] [place] [address] Dr Quiana MA PCP - General 02/25/23
[2024-09-25 08:34] LABS: MANUAL DIFF FLAG NO
[2024-09-25 09:14] LABS: Basophils Absolute Auto 0.1 X10*3/uL (0.0-0.2); Basophils Percent Auto 0.8 % (0-2); Eosinophils Absolute Auto 0.2 X10*3/uL (0.0-0.4); Eosinophils Percent Auto 2.3 % (0-4); Hematocrit 42.9 % (42.0-52.0); Hemoglobin 14.8 g/dl (14.0-18.0); Imm Gran Abs Auto 0.04 X10*3/uL (0.00-0.03); Imm Gran Pct Auto 0.5 % (0.0-0.4); Lymphocytes Absolute Auto 2.2 X10*3/uL (1.2-4.9); Lymphocytes Percent Auto 29.5 % (20-40); Mean Corpuscular HGB Conc 34.5 g/dl (31.0-36.0); Mean Corpuscular Hemoglobin 32.4 pg (27.0-33.0); Mean Corpuscular Volume 93.9 fL (80.0-98.0); Mean Platelet Volume 9.3 fL (9.4-12.4); Monocytes Absolute Auto 0.4 X10*3/uL (0.1-1.2); Monocytes Percent Auto 5.4 % (2-11); Neutrophils Absolute Auto 4.6 x10*3/uL (2.0-8.3); Neutrophils Percent Auto 61.5 % (45-73); Platelet Count 242 X10*3/uL (160-400); Red Blood Count 4.57 X10*6/uL (4.60-5.80); Red Cell Distribution Width 13.3 % (11.0-16.0); White Blood Count 7.5 X10*3/uL (4.8-10.8)
[2024-09-25 10:18] LABS: Alanine Aminotransferase 27 U/L (0-40); Alkaline Phosphatase 75 U/L (39-117); Anion Gap 13 (12-20); Aspartate Amino Transferase 24 U/L (5-37); Blood Urea Nitrogen 14 mg/dL (9-16); Calcium 8.6 mg/dL (8.4-10.2); Carbon Dioxide 27 mmol/L (22-29); Chloride 108 mmol/L (96-108); Cholesterol 158 mg/dL (<200); Estimated Glomerular Filt Rate > 60; Glucose Fasting 89 mg/dL (60-99); HDL Cholesterol 55 mg/dL (>40); LDL Cholesterol Calculated 82 mg/dL (<100); Potassium 4.6 mmol/L (3.3-5.1); Sodium 143 mmol/L (135-145); Total Protein 7.4 g/dL (6.5-8.0); Triglycerides 107 mg/dL (<150)
[2024-09-25 10:24] LABS: Prostate Specific Antigen Scr 0.74 ng/mL (<0.05-4.0)
[2024-09-25 10:58] LABS: TSH reflex Free T4 1.22 uIU/mL (0.32-4.0); Uric Acid 8.9 mg/dL (3.4-7.0)
== END 2024-09-25 08:12 | disposition home or self-care (01) ==
LOC: HO.LAB 08:11
PROVIDERS: PCP Family Medicine; Visit Provider Family Medicine
DX: Z00.00 Encounter for general adult medical examination without abnormal findings (principal); Z12.5 Encounter for screening for malignant neoplasm of prostate; M10.9 Gout, unspecified
CPT/HCPCS: 36415; 80053; 80061; 84153; 84443; 84550; 85025

== ENCOUNTER 2025-07-02 14:48 | Outpatient (AMB) | payer OTHER, SELFPAY ==
--- NOTE | 2025-07-02 14:55 | A.OFFPC_ITS ---
Vital Signs 07/02/25 14:58 Height 6 ft 5 in Weight 436 lb BMI 51.7 BP 141/73 H Blood Pressure Location Rt femoral Position Sitting Respiration 13 Pulse 65 Pulse Source Pulse Oximeter Temp 96.6 F L Temp Source Temporal Artery Scan Pulse Oximetry (%) 100 Oxygen Delivery Method Room Air Intake Visit Reasons: Annual pe Intake Note: CPE. Marzipan Maker Required: No Allergies No Known Allergies Allergy (Verified 07/02/25 14:55) Medication List - Last Reconciled 07/02/25 by Mannie Kendrick MD colchicine (Colcrys) 0.6 mg PO DIRECTED indomethacin 50 mg PO TID 7 days tirzepatide (Mounjaro) 2.5 mg (0.5 mL) subcut QWEEK 28 days Tobacco use date assessed: 07/02/25 Dental Screening Dental Screen Date: 07/02/25 Did you have a dental visit in the last 12 months?: Yes Did you have a dental problem in the last 6 months where you did not have access to dental care?: No Was dental information given to patient?: Patient has dentist HPI Annual pe HPI Details 59 y/o male presents for a CPE with f.u labs and health maint. No recent labs to review. Blood pressure today 141/73, 65p. Notes hx of elevated uric acid levels. Has complaints of gout. [facility] Medical History No pertinent past medical history Surgical History History of bariatric surgery History of hip replacement Social History Household Members: Spouse and Children Housing: House Alcohol intake: current Alcohol intake frequency: holidays/special occasions only Patient Tobacco Use Status: Current everyday Tobacco user Tobacco use type: Smokeless Tobacco (chew) e-Cigarette/Vaping Use: Never Used Second Hand Smoke Exposure: No service: No Current occupational status: employed Current occupation: [employer] Current occupational exposures/hazards: No Sexual orientation: Unable to collect Gender identity: Unable to collect Cognitive needs: No Hearing needs: No Vision needs: No Questionnaire PHQ-9 Over the last 2 weeks, how often have you been bothered by any of the following problems? 1. Little interest or pleasure in doing things: not at all 2. Feeling down, depressed, or hopeless: not at all 3. Trouble falling or staying asleep, or sleeping too much: not at all 4. Feeling tired or having little energy: not at all 5. Poor appetite or overeating: not at all 6. Feeling bad about yourself - or that you are a failure or have let yourself or your family down: not at all 7. Trouble concentrating on things, such as reading the newspaper or watching television: not at all 8. Moving or speaking so slowly that other people could have noticed. Or the opposite - being so fidgety or restless that you have been moving around a lot more than usual: not at all 9. Thoughts that you would be better off or of hurting yourself in some way: not at all Total score: 0 Depression Screening Interpretation: Negative Depression Screening Done: Yes 75639 - PHQ-9 Billing: Yes Source: Developed by Drs. oJse Cruz Álvarez, Andree Martin, Alex Card and colleagues, with an educational laly from [employer]. Thrive Questionnaire Date Thrive assessed: 07/02/25 I am a: Patient What is your living situation today?: I have a steady place to live Within the past 12 months, did the food you bought not last and you didn't have the money to get more?: Never true Within the past 12 months, did you worry whether your food would run out before you got money to buy more?: Never true Do you have trouble paying for medicines?: No Do you have trouble getting transportation to medical appointments?: No Do you have trouble paying your heating and electricity bill?: No Do you have trouble taking care of your child, family member or friend?: No Do you have trouble with day-to-day activities such as bathing, preparing meals, shopping, managing finances, etc.?: No Are you currently unemployed and looking for a job?: No Are you interested in more education?: No Please select the resources that you would like help with: None Currently or been in a relationship where the following occur: I choose not to answer THRIVE Score: 0 AUDIT C Alcohol Use Questionnaire (AUDIT-C) 1. How often do you have a drink containing alcohol?: Never Total Score: 0 JEFFRY-7 AMB Questionnaire JEFFRY-7 Date JEFFRY - 7 assessed: 07/02/25 Feeling nervous, anxious, or on edge: 0 = Not at all Not being able to stop or control worryin = Not at all Worrying too much about different things: 0 = Not at all Trouble relaxin = Not at all Being so restless that it is hard to sit still: 0 = Not at all Becoming easily annoyed or irritable: 0 = Not at all Feeling afraid as if something awful might happen: 0 = Not at all Total JEFFRY-7 score (0-4 normal; 5-9 mild; 10-14 moderate; 15-21 severe): 0 Source: Developed by Drs. Jose Cruz Álvarez, Andree Martin, Alex Card and colleagues, with an educational laly from [employer]. JEFFRY-7 Assessment Billing JEFFRY-7 Assessment Tool: JEFFRY-7 Assessment 12360 Review of Systems Const Denies chills, Denies fatigue, Denies fever(s), Denies headache(s) and Denies weakness Eyes Denies change in vision ENT Denies dizziness, Denies headache(s), Denies hearing loss, Denies nasal congestion, Denies sinus pain, Denies sinus pressure and Denies sore throat Card Denies chest pain, Denies lightheadedness, Denies dyspnea and Denies other (palpitations) Resp Denies cough, Denies dyspnea and Denies wheezing GI Denies abdominal pain, Denies melena, Denies hematochezia, Denies change in bowel habits, Denies dyspepsia and Denies nausea Denies hematuria and Denies dysuria Musc Denies abnormal gait, Denies myalgias, Denies arthralgias, Denies numbness and Denies tingling Skin/Breast Denies rash, Denies unusual bruising and Denies wounds Neuro Denies abnormal gait, Denies dizziness, Denies headache(s), Denies memory loss, Denies numbness, Denies Sensory deficit (Neuro), Denies tingling and Denies weakness Psych Denies anxiety, Denies depression and Denies memory loss Endo Denies cold intolerance, Denies fatigue, Denies heat intolerance, Denies polydipsia and Denies polyuria Mike/Lymph Denies easy bleeding and Denies easy bruising Aller/Immun Denies wheezing Physical exam (Primary Care) Vital Signs: Last Vital Signs Temp 96.6 F L 07/02/25 14:58 Pulse 65 07/02/25 14:58 Resp 13 07/02/25 14:58 BP 141/73 H 07/02/25 14:58 Pulse Ox 100 07/02/25 14:58 Oxygen Delivery Method Room Air 07/02/25 14:58 BMI result Body Mass Index 51.7 Tobacco/Smoking Status: Tobacco use Status Tobacco use date assessed 07/02/25 07/02/25 14:57 Patient Tobacco Use Status Current everyday Tobacco 07/02/25 14:57 Tobacco use type Smokeless Tobacco (chew) 07/02/25 14:57 e-Cigarette/Vaping Use Never Used 07/02/25 14:57 PHQ-9: PHQ-9 Score PHQ-9: Total score 0 07/02/25 14:57 Depression Screening Interpretation: Negative Thrive Assessment: Date of Thrive Assessment Date Thrive assessed 07/02/25 07/02/25 14:57 Currently or been in a relationship where the following occur: I choose not to answer Const General: no acute distress, well developed, alert and awake Nutritional Appearance: well nourished and obese morbidly obese Orientation/consciousness: patient oriented x3 HENMT Head: Yes normocephalic and Yes atraumatic Ears: hearing grossly normal bilaterally and TM's normal bilaterally General nose exam: Normal external nose present and Normal nares present Mouth: Normal oral and palatal mucosa present and moist mucous membranes Teeth and gingiva: dentition normal Throat: Yes posterior oropharynx normal Eyes General: appearance normal, both eyes and all related structures Pupils: Equal, round and reactive pupils present and Pupil accommodation reflex normal EOM: EOMs intact bilaterally Neck Neck: Yes normal visual inspection, Yes no lymphadenopathy and Yes trachea midline Thyroid: Thyroid normal Carotids: no bruits Lymphatic: no lymphadenopathy noted Chest Chest palpation & inspection: normal inspection of the chest Resp Effort & Inspection: normal respiratory effort Auscultation: clear to auscultation bilaterally Cardio Rate: regular rate Rhythm: regular rhythm Heart sounds: S1 normal heart sound present, S2 normal heart sound present, no gallops, no murmurs and no rubs Bruits: no abdominal aortic bruits and no carotid bruits GI Palpation (GI): No Abdominal aortic bruit present, Soft to palpation, nontender, No hepatosplenomegaly present and No Rebound tenderness present Auscultation: normal bowel sounds General: Yes no CVA tenderness Back/Spine/Pelvis Back: no CVA tenderness Cervical Spine: cervical ROM normal and No Cervical spine tenderness Thoracic/Lumbar Spine: thoraco-lumbar ROM normal, No pain with thoraco-lumbar ROM, No thoracic spinal tenderness and No lumbar spinal tenderness Skin Lesions: no lesions Rashes: no rashes Trauma: no lacerations or abrasions Wounds: no wounds Nails: normal Neuro General: patient oriented x3 Cranial nerves: Yes Equal, round and reactive pupils present Cognition (Neuro): normal cognition Gait exam (Neuro): Normal gait present Motor exam (neuro): 5/5 motor strength present throughout Sensory Exam: No Sensory deficit (Neuro) Deep tendon reflexes (DTR's): Right patellar reflex intensity grade: 2+ and Left patellar reflex intensity grade: 2+ Extrem General: Yes normal to inspection and No edema Psych Appearance: grossly normal Affect: normal affect Attitude: cooperative Thought process: Normal thought process present Coding Level of Care Code Est Pt Level 3 (04267) Est Pt Prev Care 40-64y(20805) Diagnoses Adult general medical exam Z00.00 Elevated blood pressure reading R03.0 Morbid obesity E66.01 Screening for prostate cancer Z12.5 Gout M10.9 Sleep apnea G47.30 Screening for colon cancer Z12.11 Additional Codes JEFFRY-7 Assessment Billing - JEFFRY-7 Assessment Tool: JEFFRY-7 Assessment 35468 ([id number]) PHQ-9 - 67381 - PHQ-9 Billing: Yes ([id number]) Assessment & Plan Assessment & Plan (1) Adult general medical exam: Code(s): Z00.00 - Encounter for general adult medical examination without abnormal findings Category: Medical Plan: 59-year-old male presents for complete physical exam Encouraged healthy diet with active lifestyle and plenty of exercise (2) Elevated blood pressure reading: Code(s): R03.0 - Elevated blood-pressure reading, without diagnosis of hypertension Category: Medical Plan: Blood pressure is elevated today. He mentions that at home and says it is within normal range. Continue to measure blood pressures at home. If blood pressure elevated at subsequent visits, will discuss medication. Also encouraged weight loss (3) Morbid obesity: Comment: BMI over 49 Code(s): E66.01 - Morbid (severe) obesity due to excess calories Category: Medical Plan: Morbid obesity with BMI of 51.7 and significant weight gain since last visit Patient is s/p bariatric surgery Patient has sleep apnea and should qualify for GLP 1 medication which he is interested in today. Start Mounjaro (4) Screening for prostate cancer: Code(s): Z12.5 - Encounter for screening for malignant neoplasm of prostate Category: Medical Plan: PSA earlier this year was 0.74. Within normal range. Continue annual screening (5) Gout: Code(s): M10.9 - Gout, unspecified Category: Medical Plan: He can use indomethacin and a short course of colchicine Check uric acid levels Avoid triggers such as beer If he has multiple recurrences and uric acid levels are high, we could consider allopurinol (6) Sleep apnea: Code(s): G47.30 - Sleep apnea, unspecified Category: Medical Plan: As above, patient is candidate for GLP medication for weight loss. Encouraged weight loss and also encouraged him to use his CPAP (7) Screening for colon cancer: Code(s): Z12.11 - Encounter for screening for malignant neoplasm of colon Category: Medical Plan: Patient had a colonoscopy in 2020 at [facility] and they recommended a 3 year follow- up. He is overdue. Sending him back to [facility] for follow-up colonoscopy. Orders: Orders Uric Acid Today M10.9 - Gout, unspecified Complete Blood Count Auto Diff Today Z00.00 - Encounter for general adult medical examination without abnormal findings Comprehensive [place]. Panel Fast Today Z00.00 - Encounter for general adult medical examination without abnormal findings Lipid Panel Today Z00.00 - Encounter for general adult medical examination without abnormal findings Microalbumin, Random (w Creat) Today I10 - Essential (primary) hypertension TSH reflex Free T4 Today Z00.00 - Encounter for general adult medical examination without abnormal findings UA CC w/rflx Micro + Cult Today Z00.00 - Encounter for general adult medical examination without abnormal findings Referrals Gastroenterology Referral Z12.11 - Encounter for screening for malignant neoplasm of colon Medications: New indomethacin administer with food or milk 50 mg PO TID 21 caps 1RF 7 days M10.9 - Gout, unspecified colchicine (Colcrys) take 2 tab po x 1 then 1 tab po 1 hour later x 1 max dose /8mg/day 0.6 mg PO DIRECTED 3 tabs 0RF M10.9 - Gout, unspecified tirzepatide (Mounjaro) for 4 weeks 2.5 mg (0.5 mL) subcut QWEEK 2 mL 3RF 28 days E66.01 - Morbid (severe) obesity due to excess calories, G47.34 - Idiopathic sleep related nonobstructive alveolar hypoventilation, Z68.43 - Body mass index [BMI] 50.0- 59.9, adult
[2025-07-02 14:58] VITALS: BP 141/73; PULSE 65; RESP 13; TEMP 35.9; O2SAT 100; BMI 51.7
--- OUTSIDE RECORDS SUMMARY | 2025-07-02 16:10 | XMS_ITS | Clinical Summary ---
Author Organization [facility] Address [address] [place] [address] Care Team Providers Care Associate Professor Of History Name Role Phone Mannie Kendrick MD Primary Care Provider Surgical History Surgery Date Site/Laterality Comments COLONOSCOPY 2003 PROCEDURE: HISTORICAL COLONOSCOPY; COMMENT: FH of colon cancer; 2 benign polyps OTHER SURGICAL HISTORY 09/17/2017 PROCEDURE: [place] EXCISION H/P/P/U SIMPLE/INTERMEDIATE REPAIR; COMMENT: with 0 [...] obesity with BMI of 5 0.0-59.9, adult (CMS/HCC V24, CMS/HCC V28) 01/06/2018 DX:Morbid obesity wit h BMI of 50.0-59.9, adult ([facility]) Family [...] on file Sexual Orientation Not on file Last Filed Vital Signs Vital Sign Reading [...] Health Maintenance Due Date Last Done Comments Colorectal Cancer Screening: Colonoscopy 1966 Hepatitis B Vaccines (1 of 3 - 19+ 3-dose series) 1985 Pneumococcal Vaccine: 50+ Years (1 of 1 - PCV) 2016 RSV Immunization Adult Patients (1 - Risk 50-74 years 1-dose series) 2016 Zoster Vaccines (1 of 2) 2016 Cholesterol Screening (Lipid Panel) 06/23/2022 HIV Screening 06/23/2022 Hepatitis C Screening 06/23/2022 Social Influencers of Health Screening 06/23/2022 Hypertension/CHF/CAD Annual BMP Blood Test 06/27/2022 DTaP,Tdap,and Td Vaccines (2 - Td or Tdap) 09/16/2023 09/15/2013 Depression Screening 07/15/2024 COVID-19 Vaccine (1 - 2024-2 6 season) 2025 Influenza Vaccine (#1) 2025 5, 07/23/2012 HIB Vaccines Aged Out No [...] age to complete this topic Meningococcal B Vaccine Aged Out No l onger eligible based on patient's age to complete this topic RSV Immunization Patients Under 20 months Aged Out No longer eligible b ased on patient's age to complete this topic Varicella Vaccines Aged Out No longer eligible based on patient's age to complete this topic Care Teams Associate Professor Of History Relationship Specialty Start Date End Date Mannie Kendrick MD [address] [place] [address] Dr Quiana MA PCP - General 02/25/23
--- OUTSIDE RECORDS SUMMARY | 2025-07-02 16:11 | XMS_ITS | Patient Health Record ---
Author Organization [facility] Address [address] [place] [id number] Care Team Providers Care Binding Folder Machine Name Role Phone Stanford Justin Jr Reason For Referral No Information Plan Of Treatment No Information
--- OUTSIDE RECORDS SUMMARY | 2025-07-02 16:11 | XMS_ITS ---
Author Name [facility] Organization Unknown Care Team Organization Name Specialty Phone Email Start Date End Da te [facility] Ember [facility] 05/22/2022 4
== END 2025-07-02 15:49 | disposition home or self-care (01) ==
LOC: HO.HMCFM 14:49
PROVIDERS: PCP Family Medicine; Visit Provider Family Medicine
DX: Z00.00 Encounter for general adult medical examination without abnormal findings (principal); E66.01 Morbid (severe) obesity due to excess calories; Z68.43 Body mass index [BMI] 50.0-59.9, adult; R03.0 Elevated blood-pressure reading, without diagnosis of hypertension; G47.30 Sleep apnea, unspecified; M10.9 Gout, unspecified; Z12.11 Encounter for screening for malignant neoplasm of colon; Z12.5 Encounter for screening for malignant neoplasm of prostate; Z98.84 Bariatric surgery status

== ENCOUNTER → 2025-07-02 14:48 | Outpatient (BNVA) | payer OTHER, SELFPAY | PROVIDERS: PCP Family Medicine; Visit Provider Family Medicine | DX: Z00.00 Encounter for general adult medical examination without abnormal findings (principal); R03.0 Elevated blood-pressure reading, without diagnosis of hypertension; E66.01 Morbid (severe) obesity due to excess calories; M10.9 Gout, unspecified; G47.30 Sleep apnea, unspecified; G47.34 Idiopathic sleep related nonobstructive alveolar hypoventilation; I10 Essential (primary) hypertension; Z68.43 Body mass index [BMI] 50.0-59.9, adult | CPT/HCPCS: 96127 ==